=== PATIENT | female | born 1960 ===

== ENCOUNTER → 2024-12-29 12:26 | Outpatient (REF) | payer MEDICARE, SELFPAY | LOC: WOUND 12:26 | PROVIDERS: ATTENDING PHYSICIAN Surgery; FAMILY PHYSICIAN Internal Medicine | DX: T81.31XA Disruption of external operation (surgical) wound, not elsewhere classified, initial encounter (principal); L97.312 Non-pressure chronic ulcer of right ankle with fat layer exposed; E11.42 Type 2 diabetes mellitus with diabetic polyneuropathy; E11.65 Type 2 diabetes mellitus with hyperglycemia; Z79.4 Long term (current) use of insulin; Y83.8 Other surgical procedures as the cause of abnormal reaction of the patient, or of later complication, without mention of misadventure at the time of the procedure | CPT/HCPCS: 11042; 99203 ==

== ENCOUNTER → 2025-01-05 13:42 | Outpatient (REF) | payer MEDICARE, SELFPAY | LOC: WOUND 13:42 | PROVIDERS: ATTENDING PHYSICIAN Surgery; FAMILY PHYSICIAN Internal Medicine | DX: T81.31XA Disruption of external operation (surgical) wound, not elsewhere classified, initial encounter (principal); L97.312 Non-pressure chronic ulcer of right ankle with fat layer exposed; E11.42 Type 2 diabetes mellitus with diabetic polyneuropathy; E11.65 Type 2 diabetes mellitus with hyperglycemia; Z79.4 Long term (current) use of insulin; Y83.8 Other surgical procedures as the cause of abnormal reaction of the patient, or of later complication, without mention of misadventure at the time of the procedure | CPT/HCPCS: 11042 ==

== ENCOUNTER → 2025-01-19 11:04 | Outpatient (REF) | payer MEDICARE, SELFPAY | LOC: WOUND 11:04 | PROVIDERS: ATTENDING PHYSICIAN Surgery; FAMILY PHYSICIAN Internal Medicine | DX: T81.31XA Disruption of external operation (surgical) wound, not elsewhere classified, initial encounter (principal); L97.312 Non-pressure chronic ulcer of right ankle with fat layer exposed; E11.42 Type 2 diabetes mellitus with diabetic polyneuropathy; E11.65 Type 2 diabetes mellitus with hyperglycemia; Z79.4 Long term (current) use of insulin; Y83.8 Other surgical procedures as the cause of abnormal reaction of the patient, or of later complication, without mention of misadventure at the time of the procedure | CPT/HCPCS: 11042 ==

== ENCOUNTER → 2025-01-26 10:56 | Outpatient (REF) | payer MEDICARE, SELFPAY | LOC: WOUND 10:56 | PROVIDERS: ATTENDING PHYSICIAN Surgery; FAMILY PHYSICIAN Internal Medicine | DX: T81.31XA Disruption of external operation (surgical) wound, not elsewhere classified, initial encounter (principal); Y83.8 Other surgical procedures as the cause of abnormal reaction of the patient, or of later complication, without mention of misadventure at the time of the procedure; L97.312 Non-pressure chronic ulcer of right ankle with fat layer exposed; E11.65 Type 2 diabetes mellitus with hyperglycemia | CPT/HCPCS: 99213 ==

== ENCOUNTER → 2025-02-02 10:27 | Outpatient (REF) | payer MEDICARE, SELFPAY | LOC: WOUND 10:27 | PROVIDERS: ATTENDING PHYSICIAN Surgery; FAMILY PHYSICIAN Internal Medicine | DX: T81.31XA Disruption of external operation (surgical) wound, not elsewhere classified, initial encounter (principal); L97.312 Non-pressure chronic ulcer of right ankle with fat layer exposed; E11.42 Type 2 diabetes mellitus with diabetic polyneuropathy; E11.65 Type 2 diabetes mellitus with hyperglycemia; Z79.4 Long term (current) use of insulin; Y83.8 Other surgical procedures as the cause of abnormal reaction of the patient, or of later complication, without mention of misadventure at the time of the procedure | CPT/HCPCS: 11042 ==

== ENCOUNTER → 2025-02-16 10:35 | Outpatient (REF) | payer MEDICARE, SELFPAY | LOC: WOUND 10:35 | PROVIDERS: ATTENDING PHYSICIAN Surgery; FAMILY PHYSICIAN Internal Medicine | DX: T81.31XA Disruption of external operation (surgical) wound, not elsewhere classified, initial encounter (principal); L97.312 Non-pressure chronic ulcer of right ankle with fat layer exposed; E11.42 Type 2 diabetes mellitus with diabetic polyneuropathy; E11.65 Type 2 diabetes mellitus with hyperglycemia; Z79.4 Long term (current) use of insulin; Y83.8 Other surgical procedures as the cause of abnormal reaction of the patient, or of later complication, without mention of misadventure at the time of the procedure | CPT/HCPCS: 11042 ==

== ENCOUNTER → 2025-03-05 11:04 | Outpatient (REF) | payer MEDICARE, SELFPAY | LOC: WOUND 11:04 | PROVIDERS: ATTENDING PHYSICIAN Surgery; FAMILY PHYSICIAN Internal Medicine | DX: T81.31XA Disruption of external operation (surgical) wound, not elsewhere classified, initial encounter (principal); L97.312 Non-pressure chronic ulcer of right ankle with fat layer exposed; E11.42 Type 2 diabetes mellitus with diabetic polyneuropathy; E11.65 Type 2 diabetes mellitus with hyperglycemia; Z79.4 Long term (current) use of insulin; Y83.8 Other surgical procedures as the cause of abnormal reaction of the patient, or of later complication, without mention of misadventure at the time of the procedure | CPT/HCPCS: 11042 ==

== ENCOUNTER → 2025-03-16 14:41 | Outpatient (REF) | payer MEDICARE, SELFPAY | LOC: WOUND 14:41 | PROVIDERS: ATTENDING PHYSICIAN Surgery; FAMILY PHYSICIAN Internal Medicine | DX: T81.31XA Disruption of external operation (surgical) wound, not elsewhere classified, initial encounter (principal); Y83.8 Other surgical procedures as the cause of abnormal reaction of the patient, or of later complication, without mention of misadventure at the time of the procedure; L97.312 Non-pressure chronic ulcer of right ankle with fat layer exposed; E11.42 Type 2 diabetes mellitus with diabetic polyneuropathy; E11.65 Type 2 diabetes mellitus with hyperglycemia; Z79.4 Long term (current) use of insulin | CPT/HCPCS: 99213 ==

== ENCOUNTER 2025-03-30 09:35 | Outpatient (REF) | payer MEDICARE, SELFPAY | END 2025-03-30 23:59 | disposition home or self-care (01) | LOC: WOUND 09:35 | PROVIDERS: ATTENDING PHYSICIAN Surgery; FAMILY PHYSICIAN Internal Medicine | DX: T81.31XA Disruption of external operation (surgical) wound, not elsewhere classified, initial encounter (principal); T84.498A Other mechanical complication of other internal orthopedic devices, implants and grafts, initial encounter; L97.312 Non-pressure chronic ulcer of right ankle with fat layer exposed; E11.42 Type 2 diabetes mellitus with diabetic polyneuropathy; E11.65 Type 2 diabetes mellitus with hyperglycemia; Z79.4 Long term (current) use of insulin; Y83.8 Other surgical procedures as the cause of abnormal reaction of the patient, or of later complication, without mention of misadventure at the time of the procedure | CPT/HCPCS: 99214 ==

== ENCOUNTER 2025-04-10 06:21 | Day surgery (SDC) | payer MEDICARE, SELFPAY ==
[2025-04-10] VITALS (16 sets, daily range): BP systolic 130–159; BP diastolic 68–81; BMI 43.6
[2025-04-10] MEDS: NORMOSOL-R/PLASMALYTE-A 1000 IV (12:57)
[2025-04-10 13:00] LABS: Glucose - Point of Care 68 mg/dl (70-99)
[2025-04-10 14:06] LABS: Glucose - Point of Care 47 mg/dl (70-99)
[2025-04-10] MEDS: DEXTROSE 50% SYRINGE 12.5 GRAMS IV (14:07)
[2025-04-10 14:30] LABS: Glucose - Point of Care 97 mg/dl (70-99)
--- NOTE | 2025-04-10 14:34 | PTCARENOTE ---
Dr Augustine notified of pt's pre-op accucheck of 68 at 12:55- pt asymptomatic. No treatment to be given and accucheck to be repeated at 14:00. Pt's repeat accucheck at 14:03 was 47- pt remains asymptomatic- Dr Augustine notified and half amp of D50 IV
administered at 14:07- Repeat accucheck 15 mins after treatment was 97. SHANNA Pendleton notified during report to OR.
--- NOTE | 2025-04-10 16:43 | OR.RPT ---
Operative Report
Operative Report
Date
04/10/2025
Anesthesia Type:
General
Operative Indications:
Draining right ankle wound with retained orthopedic hardware
Operative Findings :
Sinus tract right ankle wound down to hardware, no gross purulence identified, fibrinous tissue surrounding superior syndesmotic screw with enlarged bone void surrounding screw, no obvious sequestrum or involucrum
Complications:
None
Implants:
Magdi wound VAC
Procedure and Technique:
Right ankle irrigation debridement, hardware removal, placement of wound VAC
INDICATIONS FOR PROCEDURE:
Patient is a 64-year-old female history of diabetes with peripheral neuropathy almost 6 months status post open reduction term fixation right ankle fracture who developed drainage from her surgical incision. She had some wound healing issues have
been followed closely by wound care but developed worsening spontaneous drainage from her wound. Fortunately fracture had healed. I do long discussion with the patient regarding diagnosis and treatment options. Discussed postsurgical nonsurgical
options. We mutually like to proceed with surgical intervention. We discussed risks benefits and alternatives to surgery. Discussed the usual expected perioperative postoperative course. No guarantees were given. After discussion written
informed consent was obtained.
OPERATIVE PROCEDURE:
Patient was seen identified the preoperative holding area. Operative site was marked. All questions were addressed and answered. She was taken to the operating room where general anesthesia was administered. Operative extremity was prepped and
draped in normal sterile fashion. Nonsterile tourniquet was applied. Timeout was performed again identifying the correct operative extremity. Preoperative antibiotics were held in preparation for wound cultures. Tourniquet was inflated.
Previous lateral ankle incision was utilized in the central aspect where sinus tract was located was ellipsed. Blunt dissection was carried down to the hardware. There was no gross purulence identified although there was significant fibrinous
tissue with some fluid collection identified. Cultures were obtained. Tissue specimen was also sent. Lateral ankle hardware was removed. There was noted to be enlarged void surrounding the superior syndesmotic screw there was also noted to have
significant fibrinous tissue. Bone and tissue were also sent for cultures and pathology. Approximately 3 L of normal saline solution was used to irrigate the incision. Sharp excisional debridement was performed with a combination of knife,
curette and rongeur. Skin and subcutaneous tissue deep fascial layer and bone were involved in the debridement. The wound measured approximately 8 cm x 2 cm in length. Attention was then turned to the medial aspect of the ankle where previous
medial malleolus incision was utilized. Sharp dissection was carried through skin subcutaneous tissue. Utilizing intraoperative fluoroscopy medial malleolus screw was identified and removed. Fluoroscopy confirmed removal of all hardware.
Tourniquet was deflated hemostasis was achieved electrocautery. Wounds are again copiously irrigated normal saline solution. Wound was closed in layered fashion utilizing 0 PDS suture for deep fascial layer, 2-0 PDS for subcutaneous layer and 2-0
nylon for skin. Trauma stitches as well as horizontal mattress configuration were utilized to close the skin with minimal tension. Magdi wound VAC was then placed over the lateral malleolus wound. Sterile dressings were applied medially consisting
of Xeroform, 4 x 4 gauze Webril and José Miguel bandage. Anesthesia was reversed and patient was taken to PACU in stable condition. Postoperative plans were include weightbearing to the patient's tolerance operative extremity. Follow-up wound cultures.
Will consult infectious disease for antibiotic recommendation and medicine for aid in medical management of this patient.
Disposition:
PACU stable condition
[2025-04-10 16:56] LABS: Glucose - Point of Care 79 mg/dl (70-99)
[2025-04-10 21:13] LABS: Glucose - Point of Care 129 mg/dl (70-99)
[2025-04-10] MEDS: ANCEF 5 IV (21:49)
[2025-04-10] MEDS: COLACE 100 MG PO (21:50)
[2025-04-10] MEDS: NSS 1000 IV (21:53)
--- NOTE | 2025-04-11 03:17 | PTCARENOTE ---
Patient received from PACU via bed. Upon arrival she was drowsy but easily arousable. She was oriented to room and surroundings. Daughter at the bedside. RLE with dressing C/D/I with PICA drain intact. Palpable PT tib. Toes warm with cap
refill< 2 sec. IVF per order. VSS
[2025-04-11 03:21] LABS: Glucose - Point of Care 300 mg/dl (70-99)
[2025-04-11 03:22] VITALS: BP 137/73
[2025-04-11] MEDS: ANCEF 5 IV (05:37)
[2025-04-11 06:44] LABS: Hematocrit 35.1 % (37.0-47.0); Hemoglobin 11.0 g/dL (12.0-16.0)
[2025-04-11 07:21] VITALS: BP 121/57
[2025-04-11 07:39] LABS: Blood Urea Nitrogen 15 mg/dl (7-17); Calcium 8.1 mg/dl (8.4-10.2); Carbon Dioxide 24 mmol/L (22-30); Chloride 103 mmol/L (98-107); Estimated Creatinine Clearance 108 ml/min; Glucose 297 mg/dl (70-99); Potassium 5.1 mmol/L (3.5-5.1); Sodium 133 mmol/L (135-145); eGFR > 60.00
--- NOTE | 2025-04-11 08:17 | CON.HOSP ---
Consultation
-
Date/Time Consultation Requested: 04/10/2025 16:57
Date/Time Consultation Performed: 04/11/2025 10:43
Requesting Provider: Khanh Aden
Performing Provider: Logan Carrasco
Reason for Consultation: Medical management
Family Physician
-
Family Physician: NO INTERVIEW UNKNOWN
Chief Complaint
-
Right ankle infection with hardware removal
History of Present Illness
Ms. Crews is a 64-year-old female with a medical history of IDDM, peripheral neuropathy, and right bimalleolar fracture (ORIF 11/11/2024) who presented for elective removal of infected hardware in her right ankle. She tolerated the
procedure well and was admitted postoperatively. A wound VAC has been placed over the lateral wound. She was treated with cefazolin postoperatively. Patient reports well-controlled blood glucose with her current home insulin regimen of 70/30 48
units in the morning and 50 units in the evening. Internal medicine has been consulted for medical management.
Medical History
Past Medical History
Past Medical History: Reports Other
Additional Past Medical History:
Ms. Crews is a 64-year-old female with a medical history of IDDM, peripheral neuropathy, and right bimalleolar fracture (ORIF 11/11/2024)
Past Surgical History: Reports
Additional Past Surgical History:
Right ankle ORIF 11/11/2024
Social History
Tobacco: Non-smoker
Alcohol: Occasional
Drug: None
Family History
Family History: Reviewed & Not Pertinent
Allergies / Home Medications
Allergies reflects when Allergies were last updated in [facility].
Home Medications with original date entered in [facility]
Allergy/Medication List:
Allergies
Allergy/AdvReac Type Severity Reaction Status Date / Time
pollen extracts Allergy SEASONAL Verified 04/10/25 12:37
ALLERGY
Home Medications
aspirin 81 mg tablet 81 mg PO DAILY Blood Clot Prevention/Tx 04/06/25
insulin lispro protamine-lispro 100 unit/mL (75-25) subcutaneous pen 48 unit SC DAILY Diabetes 04/06/25
insulin lispro protamine-lispro 100 unit/mL (75-25) subcutaneous pen 50 unit SC HS Diabetes 04/06/25
lisinopril 2.5 mg tablet 2.5 mg PO DAILY Blood Pressure 04/06/25
rosuvastatin 10 mg tablet 10 mg PO DAILY High Cholesterol 04/06/25
Review of Systems
-
History Source: Patient
A 12 point Review of Systems was completed except as noted: Yes
Physical Exam
Vital Signs
Vital Signs
Temp Pulse Resp BP Pulse Ox
97.8 F 97 18 137/73 96
04/11/25 03:22 04/11/25 03:22 04/11/25 03:22 04/11/25 03:22 04/11/25 03:22
Physical Exam
General: No Apparent Distress
Laboratory Results
-
Laboratory Results
04/11/25 06:00
04/11/25 06:00
Impression / Plan
-
General: No Apparent Distress, Comfortable and Conversant
HEENT: NormoCephalic, Moist mucous membranes, Atraumatic
Respiratory: Clear and Non Labored Respirations
Cardiac: S1/S2 and Regular Rhythm; No Rub or Gallop
GI: Soft, Non Tender, Non Distended and Normal Bowel Sounds
Musculoskeletal: No Edema, right foot postoperative dressing and wound VAC in place
Skin: Warm and dry
: NO Smith
Neuro: Awake, Alert, Nonfocal/grossly intact
Psych: Calm and Intact Judgment/Insight
Ms. Crews is a 64-year-old female with a medical history of IDDM, peripheral neuropathy, and right bimalleolar fracture (ORIF 11/11/2024) who presented for elective removal of infected hardware in her right ankle. She tolerated the
procedure well and was admitted postoperatively. A wound VAC has been placed over the lateral wound. She was treated with cefazolin postoperatively. Patient reports well-controlled blood glucose with her current home insulin regimen of 70/30 48
units in the morning and 50 units in the evening. Internal medicine has been consulted for medical management.
Infected right ankle wound status post hardware removal:
- Initial ankle fracture 11/08/2024, underwent ORIF 11/11/2024
- Poor wound healing since ORIF, developed joint infection
- Underwent irrigation, removal of medical hardware, and wound VAC placement yesterday 04/10/2025, tolerated procedure well
- Podiatry team following
- Wound cultures growing staph
- ID following, started daptomycin, holding statin
- Plan for PICC placement
- Ultimate antibiotic course pending final ID recommendations
- Continue tight blood glucose control for optimal healing
IDDM:
- Continue insulin lispro 70/30, patient uses 48 units in the morning and 50 units at night
- Additional sliding scale as needed
- Patient did not get her insulin dose last evening and so blood glucose not currently optimally controlled, will continue to monitor and adjust regimen as needed
- Continue low-dose lisinopril for renal protection, pressure well-controlled
Hyponatremia:
- Mild with serum sodium 133
- No neurologic symptoms
- Will monitor
DVT prophylaxis: Lovenox
CODE STATUS: Full code
--- NOTE | 2025-04-11 08:18 | CM ---
Addendum entered by Dary Navarro 04/11/25 14:46:
manager intermediate received a consult from ID to set up home infusion, immigration case manager reviewed with patient and faxed referral to [facility], including clinicals, script, Infections disease physician notes and face sheet to infusion company, will
check on patient's benefits for home infusion.
Original Note:
Orthopedic Case Management Assessment
Demographics: confirmed
Living situation: Patient lives with son and daughter in a 2 story home, 5 steps into home.
Support Person Post Operatively: Son and daughter
History of
VN: No
SNF: No
Outpatient: Possibly needs 6 weeks of IV ABX.
Has patient purchased required equipment: Patient has walker, w/c and glucometer
PCP: Dr Zenon Sharp
Pharmacy: [facility] in [place]
Post Operative Discharge Plan: Patient is for discharge to home, with son and daughter, will await ID consult for IV ABX.
[2025-04-11] MEDS: NSS IV (08:20)
[2025-04-11 08:22] LABS: Glucose - Point of Care 278 mg/dl (70-99)
[2025-04-11] MEDS: CRESTOR 10 MG PO (08:31)
[2025-04-11] MEDS: ZESTRIL 2.5 MG PO (08:31)
[2025-04-11] MEDS: LOVENOX 40 MG SC (08:31)
[2025-04-11] MEDS: LOW STRENGTH ASPIRIN 81 MG PO (08:31)
[2025-04-11] MEDS: NOVOLOG MIX 70/30 FLEXPEN 48 UNITS SC (08:32)
[2025-04-11] MEDS: COLACE 100 MG PO (08:33)
--- NOTE | 2025-04-11 10:35 | VNURNOTE ---
Home Health Liaison met with patient and daughter at bedside to discuss HH nurse/therapy, visits and schedule. Patient had HH in the past with [facility]. [facility] will accept pt. Patient is agreeable to [facility] and understands
that visits at home will be 2-3 x per week to assess and teach medical management. She is aware that HH will contact her for start of care within a day or two after discharge from . Noted PATRIC dressing. Patient stated she has a rolling walker
at home. Awaiting IV Antibx recs. CM updated and will send IV antibx Rx to [facility] once available.
[facility] referral completed in [facility].
[2025-04-11 11:03] VITALS: BMI 43.6
[2025-04-11 11:19] VITALS: BP 121/51
--- NOTE | 2025-04-11 12:15 | CON.ID ---
Consultation
-
Date/Time Consultation Requested: 04/10/25 16:57
Date/Time Consultation Performed: 04/11/25 12:15
Requesting Provider: Dr Aden
Performing Provider: Dr Metz
Reason for Consultation: antibiotic management
Chief Complaint / Past History
Chief Complaint
dehiscence of right ankle wound
History of Present Illness
Ms Crews is a 64 year old female with history of Dm2 (last a1c 7.8) with peripheral neuropathy, ORIF November 11 for a bimalleolar right ankle fracture from November 08. She reports that initially she was nonweight bearing, wearing a boot and
that both of the surgical sites as well as the bone were slow to heal. She started following with wound care Dr Esquivel 12/29/24 for a wound on the medial right ankle without extension to the hardwear and moderate slough, hydrogel was used on the
wound. She followed with wound care since that time. She remained nonweight bearing through early march due to slow healing of the fracture and even after her surgeon told her she could stop wearing the boot in early she continued it
due to pain with weight bearing. Then in early march about 4 weeks ago she developed pain, erythema, swelling, blistering and a new wound just slightly inferior to the previous surgical site which she attributed to the boot rubbing the skin.
03/30 Dr Esquivel noted increased drainage from the ankle wound, purulent drainage inferior to the wound vac and hardwear was noted with probing, she was referred back to her surgeon for hardwear removal. Throughout this time she had no fevers,
chills, or loss of appetite.
Since arrival here she has been afebrile, bp stable, she underwent elective right ankle irrigation and debridement, hardwear removal and placement of wound vac. The procedure was notable in that perioperative antibiotics were initially held, a
sinus track that was removed with ellipsed and blunt dissection taken down to the hardwear with no gross purulence but a fluid collection that was taken for culture, tissue specimen also sent, lateral ankle hardwear removed with enlarged void around
the superior syndesmotic screw bone taken for culture and pathology, medial dissection and hardwear removal uncomplicated and fluoroscopy confirmed removal of all hardwear, a wound VAC was placed over the lateral wound. Cefazolin was given post
operatively 1 gm IV q8 x2 doses.
Past History
Additional Past Medical History:
HTN
HLD
DM2
Additional Past Surgical History:
ankle surgery
C section
Allergy History:
pollen extracts Allergy (Verified 04/10/25 12:37)
SEASONAL ALLERGY
Medications Reviewed: Yes
Social History
Tobacco: Non-Smoker
Alcohol: Occasional
Drug: None
Family History
Family History: Not Pertinent
Review of Systems
Review of Systems
General: Negative Fever or Chills
Vital Signs
Temp Pulse Resp BP Pulse Ox
98.7 F 105 18 121/57 95
04/11/25 07:21 04/11/25 07:21 04/11/25 07:21 04/11/25 07:21 04/11/25 07:21
Physical Exam
Physical Exam
Constitutional: No Acute Distress
Cardiovascular: Regular Rate and S1/S2; Negative Murmur or Rub
Pulmonary: Clear and Symmetric; Negative Wheezes, Rales or Rhonchi
Gastrointestinal: Soft, Non Tender, Non Distended and Normal Bowel Sounds
Skin: Warm and Dry; Negative Rash or Jaundice
Wound: Other (wound vac in place, dressing clean, dry, intact)
wound vac
Lab / Diagnostic Study Results
04/11/25 06:00
04/11/25 06:00
Microbiology Results
Micro:
04/10/25 15:15 Tissue Culture - Pending
Bone Gram Stain - Preliminary
04/10/25 15:15 Tissue Culture - Pending
Foot - Right Gram Stain - Preliminary
04/10/25 15:15 Wound Culture - Pending
Foot - Right Gram Stain - Preliminary
gram stain GPCs in clusters
04/10/25 15:15 Anaerobic Culture - Pending
Foot - Right
Assessment / Plan
Hardwear Infection
Osteomyelitis
DM2
- tissue culture many GPCs in clusters on gram stain, anaerobic culture also in progress
- pathology pending
- CBC, ESR, CRP, CK in the am
- Cr is normal
- start daptomycin 850 mg IV q24 hours - case folder to check the cost for the patient today and review with her - note this is a tentative plan pending cultures
- hold statin
- place PICC line
[2025-04-11 12:31] LABS: Glucose - Point of Care 283 mg/dl (70-99)
--- NOTE | 2025-04-11 12:48 | W.PN.ORTHO ---
Today's Communication / Plan
-
64-year-old female postop day 1 status post irrigation debridement right ankle removal of hardware and placement of wound VAC hide doing well. Cultures pending Gram stain preliminarily shows many gram-positive cocci in clusters.
Weightbearing as tolerated right lower extremity
Pain control
Medical management per medicine including diabetes management
Infectious disease consult pending for recommendations regarding long-term antibiotics/IV antibiotic recommendations
DVT prophylaxis
Disposition pending cultures, final antibiotic recommendations
Assessment
.
Dressing:
Clean, dry and intact.
Subjective
.
.:
Pain well-controlled. No acute overnight events.
Vital Signs and Labs
.
Vital Signs and Labs:
Lab Results
04/11/25 06:00
04/11/25 06:00
Temp Pulse Resp BP Pulse Ox
98.7 F 105 18 121/57 95
04/11/25 07:21 04/11/25 07:21 04/11/25 07:21 04/11/25 07:21 04/11/25 07:21
Physical Exam
-
Musculoskeletal right lower extremity
Dressing in place clean dry intact
Wound VAC in place holding suction
Exposed toes warm sensate mobile
Brisk cap refill
[2025-04-11] MEDS: NOVOLOG FLEXPEN-LOW RESISTANCE 3 UNITS SC ×2 (13:19→17:53)
[2025-04-11] MEDS: CUBICIN 17 MG IV (14:40)
[2025-04-11 15:45] VITALS: BP 128/56
[2025-04-11] MEDS: ROXICODONE 5 MG PO (16:02)
[2025-04-11 16:57] LABS: Glucose - Point of Care 260 mg/dl (70-99)
[2025-04-11] MEDS: NOVOLOG MIX 70/30 FLEXPEN 50 UNITS SC (17:54)
[2025-04-11] MEDS: COLACE PO (20:44)
[2025-04-11 21:32] LABS: Glucose - Point of Care 117 mg/dl (70-99)
[2025-04-11 23:00] VITALS: BP 136/59
[2025-04-11] MEDS: ROXICODONE 10 MG PO (23:42)
[2025-04-12 05:33] LABS: Hematocrit 32.3 % (37.0-47.0); Hemoglobin 10.1 g/dL (12.0-16.0); Mean Corp Hgb Conc. 31.3 g/dL (33.0-37.0); Mean Corpuscular Volume 82.6 fL (81.0-99.0); Nucleated Red Blood Cells % 0 %; Platelet Count 255 10^3/uL (130-400); Red Cell Dist. Width 15.1 % (11.5-14.5)
[2025-04-12 05:54] LABS: Blood Urea Nitrogen 18 mg/dl (7-17); Calcium 8.6 mg/dl (8.4-10.2); Carbon Dioxide 29 mmol/L (22-30); Chloride 106 mmol/L (98-107); Estimated Creatinine Clearance 108 ml/min; Glucose 127 mg/dl (70-99); Potassium 4.8 mmol/L (3.5-5.1); Sodium 135 mmol/L (135-145); eGFR > 60.00
[2025-04-12 05:59] LABS: C-Reactive Protein 19.70 mg/L (0.0-10.00)
[2025-04-12 07:45] LABS: Glucose - Point of Care 134 mg/dl (70-99)
[2025-04-12 08:00] VITALS: BP 126/56
[2025-04-12] MEDS: ZESTRIL 2.5 MG PO (08:45)
[2025-04-12] MEDS: LOVENOX 40 MG SC (08:46)
[2025-04-12] MEDS: COLACE 100 MG PO ×2 (08:46→20:10)
[2025-04-12] MEDS: LOW STRENGTH ASPIRIN 81 MG PO (08:46)
[2025-04-12] MEDS: NOVOLOG FLEXPEN-LOW RESISTANCE SC ×3 (08:47→16:30)
[2025-04-12] MEDS: NOVOLOG MIX 70/30 FLEXPEN 48 UNITS SC (08:47)
--- NOTE | 2025-04-12 09:08 | W.PN.ID1 ---
Date of Service
Date of Service: April 12, 2025
Today's Communication
continue daptomycin 850 mg IV q24 hours
added ceftriaxone
Assessment / Plan
Hardwear Infection
Osteomyelitis
DM2
- tissue cultures x2 with Staphylococcus - final ID and sensitivities pending, anaerobic culture also in progress
- pathology pending
- continue daptomycin 850 mg IV q24 hours
- add ceftriaxone pending sensitivities on the GNR
- hold statin while on daptomycin
- PICC line
Chief Complaint
-: Other (osteomyelitis)
Subjective / Review of Systems
afebrile
bp stable
no complaints
Vital Signs / Physical Exam
Vital Signs
Vital Signs
Temp Pulse Resp BP Pulse Ox
99.1 F 94 16 136/59 94
04/11/25 23:00 04/11/25 23:00 04/11/25 23:00 04/11/25 23:00 04/12/25 02:31
Physical Exam
Constitutional: No Acute Distress
Cardiovascular: Regular Rate and S1/S2; Negative Murmur or Rub
Pulmonary: Clear and Symmetric; Negative Wheezes or Rales
Gastrointestinal: Soft, Non Tender, Non Distended and Normal Bowel Sounds
Skin: Warm and Dry; Negative Rash or Jaundice
Lines: PICC
Objective Data
Lab Data
Lab Results
04/12/25 05:17
04/12/25 05:17
ESR 47 mm/hour (0-20) H 04/12/25 05:17
Estimated Creat Clear 108 ml/min 04/12/25 05:17
C-Reactive Protein 19.70 mg/L (0.0-10.00) H 04/12/25 05:17
Most recent labs reviewed.
Micro Results:
04/10/25 15:15 Tissue Culture - Preliminary
Bone Staphylococcus species
Gram Stain - Preliminary
04/10/25 15:15 Anaerobic Culture - Preliminary
Foot - Right Culture pending. Anaerobic cultures are examined after 3
days incubation. Additional information to follow.
04/10/25 15:15 Wound Culture - Preliminary
Foot - Right Gram Stain - Preliminary
04/10/25 15:15 Tissue Culture - Preliminary
Foot - Right Staphylococcus species
Gram Stain - Preliminary
[2025-04-12 09:13] LABS: Glycohemoglobin (HgbA1c) 6.5 % (4.0-5.9)
--- NOTE | 2025-04-12 10:00 | CM ---
Addendum entered by Dary Navarro 04/12/25 13:40:
Patient will need [facility] to also follow wound vac.
Original Note:
Patient has been set up with [facility], PICC line along with clinicals faxed to [facility], cost of medications and supplies are covered at 100%, and cost of medication is $63.71 per week, paitent has been set up with [facility].
Plan; Home with [facility] for IV daptomycin and [facility] or visiting nursing.
--- NOTE | 2025-04-12 11:01 | PN.CDI ---
CDI
- -
CDI:
Physician Documentation Request
Admit Date: 04/10/25 19:06
Dear Doctor Keiko,
Please review the following and provide your response in the progress notes.
Clinical Indicators:
Height: 5 ft 6 inch
Weight: 270 lbs
BMI: 43.6
RD notes 'BMI assessment: obese (30 or >)
Please provide an associated diagnosis related to the abnormal BMI:
BMI > or = to 40
Overweight
Obesity:
Due to excess calories
Drug induced
Due to other cause
Severe or morbid obesity:
With alveolar hypoventilation (Obesity hypoventilation syndrome)
Without alveolar hypoventilation
- BMI is not significant
- Other
Use of terms such as suspected, likely, concern for, or probable (associated with a specific diagnosis that is being evaluated, monitored, or treated as if it exists) are acceptable and can be coded in the inpatient setting, when documented at the
time of discharge.
Thank you,
Cass Hatfield RN, BSN
CDI Specialist
tiger text
Please use your independent medical judgment in providing your response.
--- NOTE | 2025-04-12 12:12 | W.PN.HOSP.TC ---
Today's Communication/Plan
-
Assessment / Plan
Assessment / Plan
General: No Apparent Distress, Comfortable and Conversant
HEENT: NormoCephalic, Moist mucous membranes, Atraumatic
Respiratory: Clear and Non Labored Respirations
Cardiac: S1/S2 and Regular Rhythm; No Rub or Gallop
GI: Soft, Non Tender, Non Distended and Normal Bowel Sounds
Musculoskeletal: No Edema, right foot postoperative dressing and wound VAC in place
Skin: Warm and dry
: NO Smith
Neuro: Awake, Alert, Nonfocal/grossly intact
Psych: Calm and Intact Judgment/Insight
Ms. Crews is a 64-year-old female with a medical history of IDDM, peripheral neuropathy, and right bimalleolar fracture (ORIF 11/11/2024) who presented for elective removal of infected hardware in her right ankle. She tolerated the
procedure well and was admitted postoperatively. A wound VAC has been placed over the lateral wound. She was treated with cefazolin postoperatively. Patient reports well-controlled blood glucose with her current home insulin regimen of 70/30 48
units in the morning and 50 units in the evening. Internal medicine has been consulted for medical management.
Infected right ankle wound status post hardware removal:
- Initial ankle fracture 11/08/2024, underwent ORIF 11/11/2024
- Poor wound healing since ORIF, developed joint infection
- Underwent irrigation, removal of medical hardware, and wound VAC placement 04/10/2025, tolerated procedure well
- Podiatry team following
- Wound cultures growing staph
- ID following, started daptomycin, holding statin
- Plan for PICC placement
- Ultimate antibiotic course pending final ID recommendations
- Continue tight blood glucose control for optimal healing
IDDM:
- Continue insulin lispro 70/30, patient uses 48 units in the morning and 50 units at night
- Additional sliding scale as needed
- Blood glucose much better controlled today, will continue to monitor and adjust regimen as needed
- Hemoglobin A1c 6.5%
- Continue low-dose lisinopril for renal protection, pressure well-controlled
Hyponatremia:
- Mild with serum sodium 133 yesterday, now improved to 135
- No neurologic symptoms
- Will monitor
DVT prophylaxis: Lovenox
CODE STATUS: Full code
Anticipated Discharge: 24 - 48 hours
Subjective/Interval History
-
Date of Service: April 12, 2025
Patient was seen and examined at bedside this morning. Blood pressure and blood glucose well-controlled. Right foot pain well-controlled.
Objective Data
-
Labs:
Laboratory Results
04/12/25
05:17
WBC 9.3
Hgb 10.1 L
Hct 32.3 L
Plt Count 255
Sodium 135
Potassium 4.8
Chloride 106
Carbon Dioxide 29
BUN 18 H
Creatinine 0.7
Glucose 127 H
Calcium 8.6
Vital Signs:
Vital Signs
Temp Pulse Resp BP Pulse Ox
98.4 F 81 16 126/56 96
04/12/25 08:00 04/12/25 08:00 04/12/25 08:00 04/12/25 08:00 04/12/25 08:00
I&O
04/11/25 04/12/25 04/13/25
06:59 06:59 06:59
Intake Total 1200 / 1200
Output Total 800 / 800 700 / 700
Balance 400 / 400 -700 / -700
Review of Systems
-
History Source: Patient
All other systems: Reviewed and negative
Physical Exam
-
General: No Apparent Distress
[2025-04-12] MEDS: ROXICODONE 10 MG PO (12:14)
[2025-04-12 12:28] LABS: Glucose - Point of Care 64 mg/dl (70-99)
[2025-04-12 12:55] LABS: Glucose - Point of Care 62 mg/dl (70-99)
[2025-04-12 13:19] LABS: Glucose - Point of Care 66 mg/dl (70-99)
[2025-04-12 14:13] LABS: Glucose - Point of Care 119 mg/dl (70-99)
[2025-04-12] MEDS: CUBICIN 17 MG IV (14:42)
[2025-04-12 15:25] VITALS: BP 111/55
[2025-04-12] MEDS: STERILE WATER FOR INJECTION 20 ML IV (16:08)
[2025-04-12] MEDS: ROCEPHIN 2000 MG IV (16:08)
[2025-04-12 16:18] LABS: Glucose - Point of Care 133 mg/dl (70-99)
--- NOTE | 2025-04-12 17:31 | W.PN.ORTHO ---
Today's Communication / Plan
-
64-year-old female now postop day 2 status post I&D removal hardware placement wound VAC right ankle. Cultures growing MRSA as well as strep agalactiae and then speciated gram-negative bacilli
I did remove wound VAC in place new sponge over the incision. Medial dressing was also taken down wound looked appropriate redressed with Adaptic 4 x 4 ABD Webril José Miguel bandage. After placement of new wound VAC sponge, no alarms were noted and wound
VAC had appropriate suction.
Weightbearing as tolerated right lower extremity
May use boot if more comfortable
IV antibiotics per infectious disease recommendations
Medical management per hospitalist service
Continue to await final speciation of cultures for final antibiotic recommendations. PICC line has been placed
Disposition: Pending final IV antibiotic recommendations
Subjective
.
.:
Patient resting comfortably. Voices no complaints. Reports that she has had some difficulty bearing weight secondary to pain. She tried wearing a boot but felt like the dressing was too bulky. She also reports that wound VAC alarm had been going
off.
Vital Signs and Labs
.
Vital Signs and Labs:
Lab Results
04/12/25 05:17
04/12/25 05:17
Temp Pulse Resp BP Pulse Ox
98.7 F 86 16 111/55 94
04/12/25 15:25 04/12/25 15:25 04/12/25 15:25 04/12/25 15:25 04/12/25 15:25
Physical Exam
-
Musculoskeletal right lower extremity
Dressing removed wound visualized, no significant drainage, good skin edge apposition
Baseline sensation to light touch distally
Brisk cap refill
Painless active ankle dorsiflexion plantarflexion
[2025-04-12 17:59] LABS: Glucose - Point of Care 129 mg/dl (70-99)
--- NOTE | 2025-04-12 18:06 | PTCARENOTE ---
Patient blood sugar at 1224 was 64. Patient asymptomatic. Juice given per protocol. Repeat at 1251 was 64. Another juice given per protocol. Repeat 1315 was 66. Patient eating lunch. Dr. Leon made aware. Reat at 1411 was 119. Per protocol, 2
hour blood sugar at 1617 was 133 and at 1758 was 129.
[2025-04-12] MEDS: NOVOLOG MIX 70/30 FLEXPEN 50 UNITS SC (18:35)
[2025-04-12 21:25] LABS: Glucose - Point of Care 86 mg/dl (70-99)
[2025-04-12 23:07] VITALS: BP 110/51
[2025-04-13 03:10] LABS: Glucose - Point of Care 169 mg/dl (70-99)
[2025-04-13 07:19] LABS: Glucose - Point of Care 145 mg/dl (70-99)
--- NOTE | 2025-04-13 07:56 | CM ---
Addendum entered by Dary Navarro 04/13/25 15:47:
Patient's home IV ABX have been set up through [facility], patient has visiting nurses services through [facility]
Original Note:
cnc manager continues to follow with patient progress notes and plan is to home after final decision by ID. Patient has been set up with home infusion through [facility], cost and PICC line information faxed to [facility]. Patient
has also been set up with [facility].
[facility]
[phone]

[facility]
[2025-04-13 08:05] VITALS: BP 133/71
[2025-04-13] MEDS: NOVOLOG FLEXPEN-LOW RESISTANCE SC (08:08)
[2025-04-13] MEDS: LOW STRENGTH ASPIRIN 81 MG PO (08:17)
[2025-04-13] MEDS: ZESTRIL 2.5 MG PO (08:17)
[2025-04-13] MEDS: NOVOLOG MIX 70/30 FLEXPEN 48 UNITS SC (08:18)
[2025-04-13] MEDS: COLACE 100 MG PO (08:18)
[2025-04-13] MEDS: LOVENOX 40 MG SC (08:18)
--- NOTE | 2025-04-13 11:15 | W.PN.HOSP.TC ---
Today's Communication/Plan
-
Assessment / Plan
Assessment / Plan
General: No Apparent Distress, Comfortable and Conversant
HEENT: NormoCephalic, Moist mucous membranes, Atraumatic
Respiratory: Clear and Non Labored Respirations
Cardiac: S1/S2 and Regular Rhythm; No Rub or Gallop
GI: Soft, Non Tender, Non Distended and Normal Bowel Sounds
Musculoskeletal: No Edema, right foot postoperative dressing and wound VAC in place
Skin: Warm and dry
: NO Smith
Neuro: Awake, Alert, Nonfocal/grossly intact
Psych: Calm and Intact Judgment/Insight
Ms. Crews is a 64-year-old female with a medical history of IDDM, peripheral neuropathy, and right bimalleolar fracture (ORIF 11/11/2024) who presented for elective removal of infected hardware in her right ankle. She tolerated the
procedure well and was admitted postoperatively. A wound VAC has been placed over the lateral wound. She was treated with cefazolin postoperatively. Patient reports well-controlled blood glucose with her current home insulin regimen of 70/30 48
units in the morning and 50 units in the evening. Internal medicine has been consulted for medical management.
Infected right ankle wound status post hardware removal:
- Initial ankle fracture 11/08/2024, underwent ORIF 11/11/2024
- Poor wound healing since ORIF, developed joint infection
- Brought back to the OR for irrigation, removal of medical hardware, and wound VAC placement 04/10/2025, tolerated procedure well
- ID following, started daptomycin, holding statin
- Wound cultures growing Proteus, group B strep, and MRSA with sensitivities now available
- PICC line in place for planned home IV antibiotics, final recommendations per ID
- Continue tight blood glucose control for optimal healing
- Anticipate discharge home today once home antibiotic arrangements have been made
IDDM:
- Continue insulin lispro 70/30, patient uses 48 units in the morning and 50 units at night
- Additional sliding scale as needed
- Blood glucose well controlled today, will continue to monitor and adjust regimen as needed
- Hemoglobin A1c 6.5%
- Continue low-dose lisinopril for renal protection, pressure well-controlled
Hyponatremia:
- Mild, resolved
- No neurologic symptoms
- Will monitor
DVT prophylaxis: Lovenox
CODE STATUS: Full code
Anticipated Discharge: Within 24 hours
Subjective/Interval History
-
Date of Service: April 13, 2025
Patient was seen and examined at bedside this morning. No acute events overnight. Cultures finalized. Planning dispo to home with home antibiotics once arranged.
Objective Data
-
Vital Signs:
Vital Signs
Temp Pulse Resp BP Pulse Ox
98.3 F 78 16 133/71 95
04/13/25 08:05 04/13/25 08:17 04/13/25 08:05 04/13/25 08:17 04/13/25 10:35
I&O
04/12/25 04/13/25 04/14/25
06:59 06:59 06:59
Intake Total 360 / 360 420 / 420
Output Total 700 / 700
Balance -700 / -700 360 / 360 420 / 420
Review of Systems
-
History Source: Patient
All other systems: Reviewed and negative
Physical Exam
-
General: No Apparent Distress
[2025-04-13 12:18] LABS: Glucose - Point of Care 198 mg/dl (70-99)
--- NOTE | 2025-04-13 12:42 | W.PN.ID1 ---
Date of Service
Date of Service: April 13, 2025
Today's Communication
- continue daptomycin 850 mg IV q24 hours and ceftriaxone 2 gm IV q24 x6 weeks through 05/23/25
- hold statin while on daptomycin
- PICC line
- follow up in 4-6 weeks
Assessment / Plan
Hardwear Infection
Osteomyelitis
DM2
- tissue cultures x2 with Staphylococcus - final ID and sensitivities pending, anaerobic culture also in progress
- pathology pending
- continue daptomycin 850 mg IV q24 hours and ceftriaxone 2 gm IV q24 x6 weeks through 05/23/25
- hold statin while on daptomycin
- PICC line
- follow up in 4-6 weeks
Chief Complaint
-: Other (osteomyelitis)
Subjective / Review of Systems
afebrile
bp stable
hypoglycemic overnight
no complaints
Vital Signs / Physical Exam
Vital Signs
Vital Signs
Temp Pulse Resp BP Pulse Ox
98.3 F 78 16 133/71 95
04/13/25 08:05 04/13/25 08:17 04/13/25 08:05 04/13/25 08:17 04/13/25 10:35
Physical Exam
Constitutional: No Acute Distress
Cardiovascular: Regular Rate and S1/S2; Negative Murmur or Rub
Pulmonary: Clear and Symmetric; Negative Wheezes or Rales
Gastrointestinal: Soft, Non Tender, Non Distended and Normal Bowel Sounds
Skin: Warm and Dry; Negative Rash or Jaundice
Wound: Other (dressing clean, dry, intact, wound vac in place)
Objective Data
Lab Data
Lab Results
04/12/25 05:17
04/12/25 05:17
ESR 47 mm/hour (0-20) H 04/12/25 05:17
Estimated Creat Clear 108 ml/min 04/12/25 05:17
C-Reactive Protein 19.70 mg/L (0.0-10.00) H 04/12/25 05:17
Most recent labs reviewed.
Micro Results:
04/10/25 15:15 Anaerobic Culture - Preliminary
Foot - Right Culture pending. Anaerobic cultures are examined after 3
days incubation. Additional information to follow.
04/10/25 15:15 Wound Culture - Preliminary
Foot - Right Staph aureus MRSA
Proteus mirabilis
Streptococcus agalactiae
Gram Stain - Preliminary
04/10/25 15:15 Tissue Culture - Final
Foot - Right Proteus mirabilis
Streptococcus agalactiae
Staph aureus MRSA
Gram Stain - Final
04/10/25 15:15 Tissue Culture - Final
Bone Staph aureus MRSA
Gram Stain - Final
[2025-04-13] MEDS: NOVOLOG FLEXPEN-LOW RESISTANCE 1 UNITS SC (12:45)
[2025-04-13] MEDS: FLUSH (NSS) 1 FLUSH IV ×2 (13:25→14:55)
[2025-04-13] MEDS: CUBICIN 17 MG IV (13:25)
[2025-04-13] MEDS: STERILE WATER FOR INJECTION 20 ML IV (14:54)
[2025-04-13] MEDS: ROCEPHIN 2000 MG IV (14:55)
[2025-04-13 15:55] VITALS: BP 142/65
[2025-04-13 17:33] LABS: Glucose - Point of Care 283 mg/dl (70-99)
[2025-04-13] MEDS: NOVOLOG MIX 70/30 FLEXPEN 50 UNITS SC (17:48)
[2025-04-13] MEDS: NOVOLOG FLEXPEN-LOW RESISTANCE 3 UNITS SC (17:48)
--- NOTE | 2025-04-13 18:10 | W.PN.ORTHO ---
Addendum entered and electronically signed by Khanh Aden MD 04/14/25 10:41:
Patient's BMI consistent with obesity due to excess calories, no evidence of aveolar hypoventilation
Original Note:
Today's Communication / Plan
-
64-year-old female postop day 3 status post irrigation debridement, removal of hardware, placement of wound VAC right ankle. Cultures are finalized. Outpatient IV antibiotic plan has been set.
Weightbearing as tolerated right lower extremity
Pain control
Medical management per medicine
IV antibiotic plan finalized per infectious disease. Outpatient IV antibiotic plan has been set up for patient
Disposition: Plan to discharge tomorrow a.m.
Subjective
.
.:
Voices no complaints today. Pain controlled.
Vital Signs and Labs
.
Vital Signs and Labs:
Lab Results
04/12/25 05:17
04/12/25 05:17
Temp Pulse Resp BP Pulse Ox
98.4 F 86 16 142/65 98
04/13/25 15:55 04/13/25 15:55 04/13/25 15:55 04/13/25 15:55 04/13/25 15:55
Physical Exam
-
Musculoskeletal right lower extremity
Dressing in place
Exposed toes warm sensate mobile
Wound VAC in place, appropriate suction
[2025-04-13] MEDS: COLACE PO (20:15)
[2025-04-13 21:40] LABS: Glucose - Point of Care 60 mg/dl (70-99)
[2025-04-13 22:07] LABS: Glucose - Point of Care 56 mg/dl (70-99)
[2025-04-13 22:35] LABS: Glucose - Point of Care 92 mg/dl (70-99)
[2025-04-13 23:19] VITALS: BP 157/80
[2025-04-14] MEDS: ROXICODONE 10 MG PO (00:17)
[2025-04-14 00:40] LABS: Glucose - Point of Care 102 mg/dl (70-99)
[2025-04-14 02:42] LABS: Glucose - Point of Care 110 mg/dl (70-99)
[2025-04-14 07:20] VITALS: BP 144/63
[2025-04-14 07:57] LABS: Glucose - Point of Care 144 mg/dl (70-99)
[2025-04-14] MEDS: NOVOLOG FLEXPEN-LOW RESISTANCE SC (08:13)
[2025-04-14] MEDS: LOVENOX 40 MG SC (08:14)
[2025-04-14] MEDS: LOW STRENGTH ASPIRIN 81 MG PO (08:14)
[2025-04-14] MEDS: COLACE PO (08:14)
[2025-04-14] MEDS: ZESTRIL 2.5 MG PO (08:14)
[2025-04-14] MEDS: NOVOLOG MIX 70/30 FLEXPEN 48 UNITS SC (08:15)
--- NOTE | 2025-04-14 10:32 | W.PN.ORTHO ---
Today's Communication / Plan
-
64-year-old female now postop day 4 status post I&D right ankle removal of hardware placement wound VAC doing well. Cultures are finalized.
Weightbearing as tolerated right lower extremity
Pain control
IV antibiotic/home health has been set up for patient upon discharge to begin later today
Infectious disease recommendations appreciated
Medical management/diabetes care per medical service, recommendation appreciated
Disposition: Plan to discharge this morning home
Subjective
.
.:
Patient comfortable this morning. Voices no complaints. No acute overnight events.
Vital Signs and Labs
.
Vital Signs and Labs:
Lab Results
04/12/25 05:17
04/12/25 05:17
Temp Pulse Resp BP Pulse Ox
97.9 F 74 16 144/63 99
04/14/25 07:20 04/14/25 07:20 04/14/25 07:20 04/14/25 07:20 04/14/25 07:20
Physical Exam
-
Musculoskeletal right lower extremity
Dressing in place clean dry and intact
Exposed toes warm sensate mobile
Wound VAC in place holding appropriate suction
--- NOTE | 2025-04-14 10:37 | W.DCSUMMARY ---
Discharge Summary
Discharge Data
Date of Admission: 04/10/25
Date of Discharge: 04/14/25
-
Pending Results: No
Hospital Course
Patient was taken to the operating room on April 10 for elective removal of right ankle hardware for persistent drainage, concern for deep infection. She underwent irrigation debridement, hardware removal and placement of wound VAC right ankle.
She was then admitted after the surgery for IV antibiotic recommendations after cultures to finalize. She was seen by both the medical service and the infectious disease service. Cultures ultimately finalized with MRSA, Proteus and Streptococcus
agalactiae. Recommendations were made by the infectious disease service for 6 weeks of outpatient IV antibiotics consisting of both daptomycin and ceftriaxone. PICC line was placed during this hospitalization. Patient was felt to be stable for
discharge and discharged home with home health care. She will plan to follow-up with myself on an outpatient basis in 1 to 2 weeks for wound check. She will plan to follow-up with infectious disease service in 4 to 6 weeks.
Discharge medications
Resume previous outpatient medications including diabetes management, 6 weeks IV antibiotics consisting of daptomycin and ceftriaxone, will send 5 mg oxycodone to be taken sparingly for pain control at patient request as well. Recommend
[id number] medications consisting of acetaminophen and NSAID for additional pain control.
Discharge Plan
-
Patient Disposition: Home (Routine Discharge)
Discharge Diagnosis/Procedures: right ankle infected hardware
Condition: Good
Diet: Regular
Activity: No restrictions
Driving Restrictions: As prior to admission
Bathing Restrictions: After dressing removed
Wound Care: Keep wound vac in place until batteries , please keep clean dry and covered until follow up
Activity Restrictions/Additional Instructions:
Weight bearing as tolerated right lower extremity
Wound vac to remain in place until batteries
Please keep ankle wound covered until follow up
Pain control- please take over the counter medications initially, please use narcotic medications sparingly
Referrals:
UNKNOWN,NO INTERVIEW [Family Provider]
Prescriptions:
Continued
aspirin 81 mg Tablet
81 mg PO DAILY
lisinopril 2.5 mg Tablet
2.5 mg PO DAILY
insulin lispro protamin-lispro 100 unit/mL (75-25) Insulin Pen
48 unit SC DAILY
rosuvastatin 10 mg Tablet
10 mg PO DAILY
insulin lispro protamin-lispro 100 unit/mL (75-25) Insulin Pen
50 unit SC HS
Discharge Orders:
Discharge Patient (As Directed); Ordered 04/14/25
Ordered By: Khanh Aden
Discharge Date and Time
Print Language: HEBREW
--- NOTE | 2025-04-14 11:02 | CM ---
TT sent to attending to confirm discharge home today.
Spoke to Dr. Aden and he will put in discharge.
[facility]
[phone]

[facility]
[2025-04-14 11:10] VITALS: BP 143/64
== END 2025-04-14 13:20 | disposition home health service (06) ==
LOC: SDS 06:21
PROVIDERS: ATTENDING PHYSICIAN Orthopaedic Surgery; CONSULT PHYSICIAN Internal Medicine; CONSULT PHYSICIAN Student in an Organized Health Care Education/Training Program
PROC: 0QBJ0ZZ Excision of Right Fibula, Open Approach (ICD-10-PCS; 2025-04-10)
PROC: 0QPG04Z Removal of Internal Fixation Device from Right Tibia, Open Approach (ICD-10-PCS; 2025-04-10)
DX: T84.622A Infection and inflammatory reaction due to internal fixation device of right tibia, initial encounter (principal); E87.1 Hypo-osmolality and hyponatremia; E11.69 Type 2 diabetes mellitus with other specified complication; M86.161 Other acute osteomyelitis, right tibia and fibula; E11.42 Type 2 diabetes mellitus with diabetic polyneuropathy; E78.5 Hyperlipidemia, unspecified; I10 Essential (primary) hypertension; B96.4 Proteus (mirabilis) (morganii) as the cause of diseases classified elsewhere; E66.9 Obesity, unspecified; Y83.1 Surgical operation with implant of artificial internal device as the cause of abnormal reaction of the patient, or of later complication, without mention of misadventure at the time of the procedure; Z68.41 Body mass index [BMI] 40.0-44.9, adult; Z79.4 Long term (current) use of insulin; Z79.82 Long term (current) use of aspirin
CPT/HCPCS: 11044; 20680; 71045; 73610; 76000; 80048; 82550; 82962; 83036; 85014; 85018; 85025; 85652; 86140; 87070; 87075; 87077; 87147; 87176; 87186; 87205; 88304; 88311; J0878